=== PATIENT | female | born 1950 | race Caucasian/White ===

== ENCOUNTER 2016-10-05 13:50 | Inpatient (IN) | payer MEDICARE, OTHER ==
[~2016-10-05] VITALS: Ht 154.9 cm; Wt 80.4 kg
[2016-10-05] MEDS ORDERED: NITROGLYCERIN 0.4 MG SL TAB SL PRN (15:00)
[2016-10-05] MEDS ORDERED: MORPHINE SULF INJ 2 MG/ML SYRINGE 1ML IV PRN (15:00)
[2016-10-05] MEDS ORDERED: ONDANSETRON HCL 4 MG/2 ML VIAL IV PRN (15:00)
[2016-10-05] MEDS ORDERED: ALBUTEROL SULF 2.5 MG/0.5ML(0.5%) NEB SOLN NEB PRN (15:00)
[2016-10-05] MEDS: SODIUM CHLORIDE 0.9% 1,000 ML IV SCH (15:00)
[2016-10-05 16:24] LABS: Basophils # (auto) 0 uL; Basophils % (auto) 0.2 % (0.0-2.0); CONDITION AutoValidated; Eosinophils # (auto) 0.1 uL; Hematocrit 35.3 % (36.0-46.0); Hemoglobin 11.9 g/dL (12.2-16.2); Lymphocytes # (auto) 1.4 uL; Lymphocytes % (auto) 12.8 % (10.0-50.0); Mean Corpuscular Hemoglobin 30.2 pg (28.0-32.0); Mean Corpuscular Hgb Conc. 33.8 g/dL (32.0-36.0); Mean Corpuscular Volume 89.3 fL (80.0-100.0); Mean Platelet Volume 7.6 fL (7.4-10.4); Monocytes # (auto) 0.7 uL; Monocytes % (auto) 6.8 % (0.0-12.0); Neutrophils # (auto) 8.6 uL; Neutrophils % (auto) 79.2 % (37.0-80.0); Platelet Count (auto) 710 10^3/uL (140-450); Red Cell Distribution Width 14.1 % (11.6-16.0); White Blood Cell 10.9 10^3/uL (4.4-10.8)
[2016-10-05 16:30] LABS: Albumin 3.1 g/dL (3.4-5.0); BUN/Creatinine Ratio 18.3; Calcium 8.8 mg/dL (8.5-10.1); Potassium 4.2 mmol/L (3.5-5.1)
[2016-10-05 16:33] LABS: Bilirubin, Total 0.3 mg/dL (0.2-1.0); Total Protein 8.4 g/dL (6.4-8.2)
[2016-10-05 17:00] VITALS: BP 128/81
[2016-10-05] MEDS ORDERED: cefTRIAXone 1GM/50ML D5W 50 ML IV ONE (18:00)
[2016-10-05] MEDS: IPRATROPIUM BROM 0.5 MG/2.5ML INH SOL NEB SCH ×2 (18:22→22:14)
[2016-10-05] MEDS: ALBUTEROL SULF 2.5 MG/0.5ML(0.5%) NEB SOLN NEB SCH ×2 (18:23→22:14)
[2016-10-05 20:00] VITALS: BP 131/72
[2016-10-05] MEDS ORDERED: AZITHROMYCIN 500MG/D5W 250ML 250 ML IV ONE (20:00)
[2016-10-05 22:00] VITALS: BP 131/72
[2016-10-05] MEDS ORDERED: XYZAL 5 MG PO SCH (22:00)
[2016-10-05] MEDS: methylPREDNISolone SOD SUCC 40 MG/ML VL IV SCH (22:51)
[2016-10-05] MEDS: ACETAMINOPHEN 325 MG TAB PO PRN (22:55)
[2016-10-06] VITALS (7 sets, daily range): BP systolic 118–138; BP diastolic 38–78
[2016-10-06] MEDS: ALBUTEROL SULF 2.5 MG/0.5ML(0.5%) NEB SOLN NEB SCH ×6 (02:13→22:05)
[2016-10-06] MEDS: IPRATROPIUM BROM 0.5 MG/2.5ML INH SOL NEB SCH ×6 (02:13→22:05)
[2016-10-06 05:52] LABS: Basophils # (auto) 0 uL; Basophils % (auto) 0.2 % (0.0-2.0); CONDITION AutoValidated; Eosinophils # (auto) 0 uL; Eosinophils % (auto) 0.1 % (0.0-7.0); Hematocrit 33.3 % (36.0-46.0); Lymphocytes # (auto) 0.5 uL; Lymphocytes % (auto) 7.2 % (10.0-50.0); Mean Corpuscular Hemoglobin 29.9 pg (28.0-32.0); Mean Corpuscular Hgb Conc. 33.2 g/dL (32.0-36.0); Mean Corpuscular Volume 90.3 fL (80.0-100.0); Mean Platelet Volume 7.4 fL (7.4-10.4); Monocytes # (auto) 0.1 uL; Monocytes % (auto) 1.7 % (0.0-12.0); Neutrophils % (auto) 90.8 % (37.0-80.0); Platelet Count (auto) 603 10^3/uL (140-450); Red Cell Distribution Width 13.7 % (11.6-16.0); White Blood Cell 7.7 10^3/uL (4.4-10.8)
[2016-10-06 06:16] LABS: Albumin 2.7 g/dL (3.4-5.0); BUN/Creatinine Ratio 21.1; Bilirubin, Total 0.2 mg/dL (0.2-1.0); Calcium 8.7 mg/dL (8.5-10.1); Potassium 4.4 mmol/L (3.5-5.1); Total Protein 7.2 g/dL (6.4-8.2)
[2016-10-06] MEDS: methylPREDNISolone SOD SUCC 40 MG/ML VL IV SCH ×4 (06:21→21:49)
[2016-10-06] MEDS: SODIUM CHLORIDE 0.9% 1,000 ML IV SCH ×2 (06:26→19:44)
[2016-10-06] MEDS: cefTRIAXone 1GM/50ML D5W 50 ML IV SCH (10:22)
[2016-10-06] MEDS: METOPROLOL SUCCINATE XL 50 MG TAB PO SCH (10:22)
[2016-10-06] MEDS: PANTOPRAZOLE 40 MG TAB PO SCH (10:23)
[2016-10-06] MEDS: buPROPion HCL 100 MG TAB PO SCH (10:24)
[2016-10-06] MEDS: AZITHROMYCIN 250 MG TAB PO SCH (10:24)
[2016-10-06] MEDS ORDERED: BUPR100T7 (17:59)
[2016-10-06] MEDS ORDERED: LEVOTAB51 (17:59)
[2016-10-06] MEDS ORDERED: ALBU18 (17:59)
[2016-10-06] MEDS ORDERED: METO25TA62 (17:59)
[2016-10-06] MEDS: LORATADINE 10 MG TAB PO SCH (21:49)
[2016-10-07] MEDS: IPRATROPIUM BROM 0.5 MG/2.5ML INH SOL NEB SCH ×6 (01:41→22:05)
[2016-10-07] MEDS: ALBUTEROL SULF 2.5 MG/0.5ML(0.5%) NEB SOLN NEB SCH ×6 (01:41→22:05)
[2016-10-07 04:47] VITALS: BP 108/62
[2016-10-07] MEDS: methylPREDNISolone SOD SUCC 40 MG/ML VL IV SCH ×4 (05:45→21:24)
[2016-10-07] MEDS: SODIUM CHLORIDE 0.9% 1,000 ML IV SCH (05:46)
[2016-10-07] MEDS: ACETAMINOPHEN 325 MG TAB PO PRN (05:55)
[2016-10-07 08:00] VITALS: BP 123/72
[2016-10-07] MEDS: buPROPion HCL 100 MG TAB PO SCH (09:36)
[2016-10-07] MEDS: PANTOPRAZOLE 40 MG TAB PO SCH (09:36)
[2016-10-07] MEDS: AZITHROMYCIN 250 MG TAB PO SCH (09:36)
[2016-10-07] MEDS: cefTRIAXone 1GM/50ML D5W 50 ML IV SCH (09:36)
[2016-10-07] MEDS: METOPROLOL SUCCINATE XL 50 MG TAB PO SCH (09:37)
[2016-10-07] MEDS ORDERED: PROMETHAZINE W/CODEINE 5 ML ORAL SYRUP PO PRN (09:45)
[2016-10-07 15:01] VITALS: BP 146/81
[2016-10-07 17:11] VITALS: BP 131/76
[2016-10-07] MEDS: LORATADINE 10 MG TAB PO SCH (21:25)
[2016-10-07 22:00] VITALS: BP 123/71
[2016-10-08] MEDS: IPRATROPIUM BROM 0.5 MG/2.5ML INH SOL NEB SCH ×3 (02:05→10:08)
[2016-10-08] MEDS: ALBUTEROL SULF 2.5 MG/0.5ML(0.5%) NEB SOLN NEB SCH ×3 (02:06→10:08)
[2016-10-08] MEDS: methylPREDNISolone SOD SUCC 40 MG/ML VL IV SCH (05:15)
[2016-10-08 05:44] LABS: CONDITION AutoValidated; DEFINITIVE SEE PRINTOUT; Hematocrit 36.7 % (36.0-46.0); Hemoglobin 12.1 g/dL (12.2-16.2); Mean Corpuscular Hemoglobin 29.7 pg (28.0-32.0); Mean Corpuscular Hgb Conc. 32.9 g/dL (32.0-36.0); Mean Corpuscular Volume 90.4 fL (80.0-100.0); Mean Platelet Volume 7.4 fL (7.4-10.4); Red Cell Distribution Width 14.4 % (11.6-16.0); White Blood Cell 20.2 10^3/uL (4.4-10.8)
[2016-10-08 05:57] VITALS: BP 144/79
[2016-10-08 06:09] LABS: BUN/Creatinine Ratio 30.3; Bilirubin, Total 0.2 mg/dL (0.2-1.0); Calcium 9.2 mg/dL (8.5-10.1); Potassium 4.4 mmol/L (3.5-5.1); Total Protein 7.6 g/dL (6.4-8.2)
[2016-10-08 06:22] LABS: Metamyelocytes % 0; Myelocytes % 0; Platelet Count (auto) 809 10^3/uL (140-450); Promyelocytes % 0; Reactive Lymphocytes 0
[2016-10-08 06:47] LABS: Platelet Estimate Markedly Increased
[2016-10-08 08:00] VITALS: BP 126/71
[2016-10-08] MEDS: cefTRIAXone 1GM/50ML D5W 50 ML IV SCH (09:00)
[2016-10-08 09:35] VITALS: BP 126/76
[2016-10-08] MEDS: buPROPion HCL 100 MG TAB PO SCH (09:42)
[2016-10-08] MEDS: AZITHROMYCIN 250 MG TAB PO SCH (09:42)
[2016-10-08] MEDS: PANTOPRAZOLE 40 MG TAB PO SCH (09:42)
[2016-10-08] MEDS: METOPROLOL SUCCINATE XL 50 MG TAB PO SCH (09:43)
[2016-10-08 12:15] VITALS: BP 129/77
[2016-10-08 13:01] VITALS: BP 129/77
== END 2016-10-08 14:00 | disposition home or self-care (01) | DRG 202 ==
LOC: TELE-WESTW 13:50
PROVIDERS: ADMIT Internal Medicine; ATTEND Internal Medicine
DX: J45.901 Unspecified asthma with (acute) exacerbation (principal); J18.9 Pneumonia, unspecified organism; E44.0 Moderate protein-calorie malnutrition; F32.9 Major depressive disorder, single episode, unspecified; K21.9 Gastro-esophageal reflux disease without esophagitis; I10 Essential (primary) hypertension; Z68.35 Body mass index [BMI] 35.0-35.9, adult; Z88.0 Allergy status to penicillin; Z88.8 Allergy status to other drugs, medicaments and biological substances
CPT/HCPCS: 36415; 71010; 71020; 80053; 84484; 85007; 85025; 85027; 87040; 94640; J0696

== ENCOUNTER → 2018-09-18 | Outpatient (CLI) | payer MEDICARE, OTHER ==
[~2018-09-18] MED LIST: ALBU18; BUPR100T7; LEVOTAB51; METO25TA62
[2018-09-18 08:09] LABS: Basophils # (auto) 0 uL; Basophils % (auto) 0.6 % (0.0-2.0); Eosinophils # (auto) 0.1 uL; Eosinophils % (auto) 1.2 % (0.0-7.0); Hematocrit 40.7 % (36.0-46.0); Hemoglobin 13.2 g/dL (12.2-16.2); Lymphocytes # (auto) 1.4 uL; Lymphocytes % (auto) 21.4 % (10.0-50.0); Mean Corpuscular Hemoglobin 28.9 pg (28.0-32.0); Mean Corpuscular Hgb Conc. 32.4 g/dL (32.0-36.0); Mean Corpuscular Volume 89.1 fL (80.0-100.0); Monocytes # (auto) 0.5 uL; Monocytes % (auto) 7.8 % (0.0-12.0); Neutrophils # (auto) 4.4 uL; Nucleated Red Blood Cells % 0.1 %; Platelet Count (auto) 399 10^3/uL (140-450); Red Blood Cells 4.57 10^6/uL (4.0-5.20); Red Cell Distribution Width 14.7 % (11.8-14.3); White Blood Cell 6.3 10^3/uL (4.4-10.8)
[2018-09-18 08:19] LABS: Urine Bacteria NONE SEEN /hpf (None Seen); Urine Blood Negative /uL (Negative); Urine Specific Gravity 1.018 (1.001-1.035); Urine WBC 2 /hpf (0 - 5)
[2018-09-18 08:31] LABS: Albumin 3.5 g/dL (3.4-5.0); Potassium 4.5 mmol/L (3.5-5.1)
[2018-09-18 08:36] LABS: BUN/Creatinine Ratio 23.9; Bilirubin, Total 0.3 mg/dL (0.2-1.0); Total Protein 7.3 g/dL (6.4-8.2)
== END | disposition home or self-care (01) ==
LOC: LAB 07:13
PROVIDERS: ATTEND Internal Medicine
DX: E78.5 Hyperlipidemia, unspecified (principal)
CPT/HCPCS: 36415; 80053; 80061; 81001; 82150; 82306; 82607; 83690; 84443; 85025

== ENCOUNTER → 2018-10-17 | Outpatient (CLI) | payer OTHER | END | disposition home or self-care (01) | LOC: LAB 13:06 | PROVIDERS: ATTEND Internal Medicine | DX: Z00.00 Encounter for general adult medical examination without abnormal findings (principal); E78.5 Hyperlipidemia, unspecified; Z83.3 Family history of diabetes mellitus | CPT/HCPCS: 82274 ==

== ENCOUNTER → 2019-01-01 | Outpatient (CLI) | payer OTHER, MEDICARE | END | disposition home or self-care (01) | LOC: LAB 12:32 | PROVIDERS: ATTEND Internal Medicine Gastroenterology | DX: R19.5 Other fecal abnormalities (principal); K58.0 Irritable bowel syndrome with diarrhea | CPT/HCPCS: 82274 ==

== ENCOUNTER 2019-02-17 07:39 | Day surgery (SDC) | payer OTHER ==
[2019-02-13 11:18] LABS: Basophils # (auto) 0 uL; Basophils % (auto) 0.7 % (0.0-2.0); Eosinophils # (auto) 0.1 uL; Eosinophils % (auto) 1.4 % (0.0-7.0); Hematocrit 40.6 % (36.0-46.0); Hemoglobin 13.6 g/dL (12.2-16.2); Lymphocytes # (auto) 1.8 uL; Lymphocytes % (auto) 24.5 % (10.0-50.0); Mean Corpuscular Hemoglobin 29.1 pg (28.0-32.0); Mean Corpuscular Hgb Conc. 33.6 g/dL (32.0-36.0); Mean Corpuscular Volume 86.6 fL (80.0-100.0); Monocytes # (auto) 0.6 uL; Monocytes % (auto) 7.6 % (0.0-12.0); Neutrophils # (auto) 4.9 uL; Neutrophils % (auto) 65.8 % (37.0-80.0); Nucleated Red Blood Cells % 0.1 %; Platelet Count (auto) 423 10^3/uL (140-450); Red Blood Cells 4.68 10^6/uL (4.0-5.20); Red Cell Distribution Width 15.6 % (11.8-14.3); White Blood Cell 7.5 10^3/uL (4.4-10.8)
[2019-02-13 11:35] LABS: INR < 0.93 (0.9-1.15); Partial Thromboplastin Time 27.1 sec (23.64-32.05)
[~2019-02-17] VITALS: Ht 157.5 cm; Wt 74.8 kg
[~2019-02-17 07:39] MED LIST changes: -BUPR100T7; -LEVOTAB51; +OMEP20TA PO
[2019-02-17] MEDS ORDERED: SODIUM CHLORIDE LOCK 10 ML ONE (08:19)
[2019-02-17] MEDS ORDERED: diphenhdrAMINE HCL 50 MG/1 ML VL ONE (08:20)
[2019-02-17] MEDS: MIDAZOLAM HCL 5 MG/ML-1ML VIAL ONE ×3 (09:16→09:24)
[2019-02-17] MEDS: fentaNYL CITRATE 100 MCG/2 ML VL ONE ×2 (09:16→09:19)
[2019-02-17 10:09] VITALS: BP 132/66
== END 2019-02-17 10:22 | disposition home or self-care (01) ==
LOC: GI 07:39
PROVIDERS: ATTEND Internal Medicine Gastroenterology
DX: K58.0 Irritable bowel syndrome with diarrhea (principal); K57.30 Diverticulosis of large intestine without perforation or abscess without bleeding; I10 Essential (primary) hypertension; E66.9 Obesity, unspecified; K21.9 Gastro-esophageal reflux disease without esophagitis; J45.909 Unspecified asthma, uncomplicated; Z90.710 Acquired absence of both cervix and uterus; Z98.890 Other specified postprocedural states; Z88.6 Allergy status to analgesic agent; Z88.0 Allergy status to penicillin; Z79.899 Other long term (current) drug therapy; Z68.29 Body mass index [BMI] 29.0-29.9, adult; Z80.0 Family history of malignant neoplasm of digestive organs
CPT/HCPCS: 36415; 45378; 85025; 85610; 85730; J1200; J2250; J3010; J7030; 99152

== ENCOUNTER → 2020-03-03 | Outpatient (CLI) | payer OTHER, MEDICARE ==
[~2020-03-03] MED LIST changes: -METO25TA62; +METO25TA93
[2020-03-03 07:34] LABS: Basophils # (auto) 0 10 ^3/uL (0-0.2); Basophils % (auto) 0.4 % (0.0-2.0); Eosinophils # (auto) 0.1 10 ^3/uL (0-0.8); Eosinophils % (auto) 1.8 % (0.0-7.0); Lymphocytes # (auto) 1.4 10 ^3/uL (0.4-5.4); Lymphocytes % (auto) 19.4 % (10.0-50.0); Mean Corpuscular Hemoglobin 29.3 pg (28.0-32.0); Mean Corpuscular Hgb Conc. 32.6 g/dL (32.0-36.0); Mean Corpuscular Volume 89.8 fL (80.0-100.0); Monocytes # (auto) 0.7 10 ^3/uL (0-1.3); Neutrophils # (auto) 5.1 10 ^3/uL (1.6-8.6); Neutrophils % (auto) 69.4 % (37.0-80.0); Platelet Count (auto) 399 10^3/uL (140-450); Red Blood Cells 4.46 10^6/uL (4.0-5.20); Red Cell Distribution Width 14.5 % (11.8-14.3); White Blood Cell 7.4 10^3/uL (4.4-10.8)
[2020-03-03 08:09] LABS: Albumin 3.4 g/dL (3.4-5.0); BUN/Creatinine Ratio 23.9; Bilirubin, Total 0.4 mg/dL (0.2-1.0); Calcium 9.3 mg/dL (8.5-10.1); Potassium 4.5 mmol/L (3.5-5.1); Total Protein 7.2 g/dL (6.4-8.2)
== END | disposition home or self-care (01) ==
LOC: LAB 07:11
PROVIDERS: ATTEND Internal Medicine
DX: Z00.00 Encounter for general adult medical examination without abnormal findings (principal)
CPT/HCPCS: 36415; 80053; 80061; 83036; 84443; 85025

== ENCOUNTER → 2020-03-29 | Outpatient (CLI) | payer OTHER | END | disposition home or self-care (01) | LOC: LAB 13:39 | PROVIDERS: ATTEND Nurse Practitioner Family | DX: U07.1 COVID-19 (principal) | CPT/HCPCS: C9803; U0003 ==

== ENCOUNTER → 2020-05-20 | Outpatient (CLI) | payer OTHER | END | disposition home or self-care (01) | LOC: LAB 11:57 | PROVIDERS: ATTEND Physician Assistant | DX: D22.9 Melanocytic nevi, unspecified (principal) ==

== ENCOUNTER → 2020-08-06 | Day surgery (SDC) | payer OTHER ==
[2020-08-03 14:52] LABS: Basophils # (auto) 0 10 ^3/uL (0-0.2); Basophils % (auto) 0.3 % (0.0-2.0); Eosinophils # (auto) 0.1 10 ^3/uL (0-0.8); Eosinophils % (auto) 1.3 % (0.0-7.0); Hematocrit 36.5 % (36.0-46.0); Hemoglobin 12.3 g/dL (12.2-16.2); Lymphocytes # (auto) 1.9 10 ^3/uL (0.4-5.4); Mean Corpuscular Hemoglobin 29.4 pg (28.0-32.0); Mean Corpuscular Hgb Conc. 33.6 g/dL (32.0-36.0); Mean Corpuscular Volume 87.5 fL (80.0-100.0); Monocytes # (auto) 0.7 10 ^3/uL (0-1.3); Monocytes % (auto) 7.2 % (0.0-12.0); Neutrophils # (auto) 6.6 10 ^3/uL (1.6-8.6); Neutrophils % (auto) 71.2 % (37.0-80.0); Nucleated Red Blood Cells % 0.1 %; Platelet Count (auto) 429 10^3/uL (140-450); Red Blood Cells 4.17 10^6/uL (4.0-5.20); White Blood Cell 9.3 10^3/uL (4.4-10.8)
[2020-08-03 15:28] LABS: INR 0.92 (0.9-1.15); Partial Thromboplastin Time 26.5 sec (23.0-31.2)
[~2020-08-06] VITALS: Ht 157.5 cm; Wt 73.5 kg
[~2020-08-06] MED LIST changes: +LIDOCAINE VISCOUS 2% 15ML UD ONE
[2020-08-06] MEDS: fentaNYL CITRATE 100 MCG/2 ML VL ONE ×2 (13:51→13:55)
[2020-08-06] MEDS: diphenhdrAMINE HCL 50 MG/1 ML VL ONE ×2 (13:51→13:55)
[2020-08-06] MEDS: MIDAZOLAM HCL 5 MG/ML-1ML VIAL ONE ×2 (13:51→13:55)
[2020-08-06 14:35] VITALS: BP 121/52
== END | disposition home or self-care (01) ==
LOC: GI 11:57
PROVIDERS: ATTEND Internal Medicine Gastroenterology
DX: K92.1 Melena (principal); K29.50 Unspecified chronic gastritis without bleeding; K31.89 Other diseases of stomach and duodenum; K44.9 Diaphragmatic hernia without obstruction or gangrene; K22.10 Ulcer of esophagus without bleeding; K21.9 Gastro-esophageal reflux disease without esophagitis; I10 Essential (primary) hypertension; J45.909 Unspecified asthma, uncomplicated; Z90.710 Acquired absence of both cervix and uterus; Z20.822 Contact with and (suspected) exposure to COVID-19; Z98.890 Other specified postprocedural states; Z79.899 Other long term (current) drug therapy; Z88.0 Allergy status to penicillin; Z88.5 Allergy status to narcotic agent; Z88.8 Allergy status to other drugs, medicaments and biological substances
CPT/HCPCS: 36415; 85025; 85610; 85730; 88305; 88342; J1200; J2250; J3010; J7030; U0003; 43239

== ENCOUNTER → 2020-10-19 | Outpatient (CLI) | payer OTHER ==
[~2020-10-19] MED LIST changes: -LIDOCAINE VISCOUS 2% 15ML UD ONE
[2020-10-19 15:44] LABS: Urine Bacteria NONE SEEN /hpf (None Seen); Urine Blood Negative /uL (Negative); Urine Mucus FEW (None Seen); Urine Specific Gravity 1.023 (1.001-1.035); Urine WBC 44 /hpf (0 - 5); Urine WBC Clumps PRESENT /hpf (None Seen)
[2020-10-19 16:11] LABS: BUN/Creatinine Ratio 27.2; Calcium 9.1 mg/dL (8.5-10.1); Potassium 4.3 mmol/L (3.5-5.1)
== END | disposition home or self-care (01) ==
LOC: LAB 15:25
PROVIDERS: ATTEND Internal Medicine
DX: K58.2 Mixed irritable bowel syndrome (principal)
CPT/HCPCS: 36415; 80048; 81001; 87086

== ENCOUNTER → 2020-11-02 | Outpatient (CLI) | payer OTHER | END | disposition home or self-care (01) | LOC: LAB 13:25 | PROVIDERS: ATTEND Internal Medicine | DX: Z01.812 Encounter for preprocedural laboratory examination (principal) | CPT/HCPCS: 36415; 82565; 84520 ==

== ENCOUNTER → 2021-04-19 | Day surgery (SDC) | payer OTHER ==
[2021-04-18 10:54] LABS: Basophils # (auto) 0 10 ^3/uL (0-0.2); Basophils % (auto) 0.5 % (0.0-2.0); Eosinophils # (auto) 0.1 10 ^3/uL (0-0.8); Eosinophils % (auto) 1.5 % (0.0-7.0); Hematocrit 40.5 % (36.0-46.0); Hemoglobin 13.3 g/dL (12.2-16.2); Lymphocytes # (auto) 1.4 10 ^3/uL (0.4-5.4); Lymphocytes % (auto) 22.8 % (10.0-50.0); Mean Corpuscular Hemoglobin 29.5 pg (28.0-32.0); Mean Corpuscular Hgb Conc. 32.8 g/dL (32.0-36.0); Monocytes # (auto) 0.5 10 ^3/uL (0-1.3); Monocytes % (auto) 8.2 % (0.0-12.0); Neutrophils # (auto) 4.2 10 ^3/uL (1.6-8.6); Nucleated Red Blood Cells % 0.1 %; Red Blood Cells 4.49 10^6/uL (4.0-5.20); Red Cell Distribution Width 14.9 % (11.8-14.3); White Blood Cell 6.3 10^3/uL (4.4-10.8)
[2021-04-18 11:17] LABS: Potassium 4.4 mmol/L (3.5-5.1)
[2021-04-18 11:24] LABS: Albumin 3.5 g/dL (3.4-5.0); BUN/Creatinine Ratio 25.4; Bilirubin, Total 0.3 mg/dL (0.2-1.0); Calcium 8.6 mg/dL (8.5-10.1); Total Protein 6.8 g/dL (6.4-8.2)
[~2021-04-19] VITALS: Ht 157.5 cm; Wt 72.6 kg
[~2021-04-19] MED LIST changes: +DICY10CA PO; +FAMO20TA10 PO; -OMEP20TA PO; +PANT40TA2 PO; +SERT25TA84 PO; +fentaNYL CITRATE 100 MCG/2 ML VL ONE
[2021-04-19] MEDS: MIDAZOLAM HCL 5 MG/ML-1ML VIAL ONE ×4 (10:37→10:46)
[2021-04-19] MEDS: diphenhdrAMINE HCL 50 MG/1 ML VL ONE ×2 (10:37→10:40)
[2021-04-19] MEDS: fentaNYL CITRATE 100 MCG/2 ML VL ONE ×3 (10:37→10:43)
[2021-04-19 12:00] VITALS: BP 146/64
== END | disposition home or self-care (01) ==
LOC: GI 09:13
PROVIDERS: ATTEND Internal Medicine Gastroenterology
DX: K52.9 Noninfective gastroenteritis and colitis, unspecified (principal); K63.5 Polyp of colon; K57.30 Diverticulosis of large intestine without perforation or abscess without bleeding; I10 Essential (primary) hypertension; M19.90 Unspecified osteoarthritis, unspecified site; F41.9 Anxiety disorder, unspecified; Z90.89 Acquired absence of other organs; Z87.891 Personal history of nicotine dependence; Z82.49 Family history of ischemic heart disease and other diseases of the circulatory system; Z90.710 Acquired absence of both cervix and uterus; Z88.0 Allergy status to penicillin; Z88.5 Allergy status to narcotic agent; Z20.822 Contact with and (suspected) exposure to COVID-19
CPT/HCPCS: 36415; 45385; 80053; 85025; 88305; J1200; J2250; J3010; J7030; U0003; 99152

== ENCOUNTER → 2021-05-30 | Outpatient (CLI) | payer OTHER ==
[~2021-05-30] MED LIST changes: -fentaNYL CITRATE 100 MCG/2 ML VL ONE
== END | disposition home or self-care (01) ==
LOC: XYW 13:49
PROVIDERS: ATTEND Internal Medicine
DX: Z01.810 Encounter for preprocedural cardiovascular examination (principal); I35.1 Nonrheumatic aortic (valve) insufficiency; I05.0 Rheumatic mitral stenosis; I35.0 Nonrheumatic aortic (valve) stenosis
CPT/HCPCS: 93306

== ENCOUNTER → 2021-06-07 | Outpatient (CLI) | payer OTHER ==
[~2021-06-07] VITALS: Ht 157.5 cm; Wt 73.5 kg
[~2021-06-07] MED LIST changes: +ADENOSINE 62 MG in GIVE UN-DILUTED 0 ML IV ONE
[2021-06-07 08:19] VITALS: BP 126/65
== END | disposition home or self-care (01) ==
LOC: XY 07:23
PROVIDERS: ATTEND Internal Medicine
DX: Z01.810 Encounter for preprocedural cardiovascular examination (principal); I10 Essential (primary) hypertension; E66.9 Obesity, unspecified; R42 Dizziness and giddiness
CPT/HCPCS: 78452; 93017; A9500; J0153

== ENCOUNTER → 2021-06-07 | Outpatient (CLI) | payer OTHER ==
[~2021-06-07] MED LIST changes: -ADENOSINE 62 MG in GIVE UN-DILUTED 0 ML IV ONE
[2021-06-07 08:08] LABS: Urine Bacteria FEW /hpf (None Seen); Urine Blood Negative /uL (Negative); Urine Mucus FEW (None Seen); Urine Specific Gravity 1.022 (1.001-1.035); Urine WBC 23 /hpf (0 - 5)
[2021-06-07 13:07] LABS: Cholesterol 230 mg/dL (< 200); HDL Cholesterol 48 mg/dL (40-59); LDL Cholesterol 141 mg/dL (< 100); Triglycerides 251 mg/dL (< 150)
== END | disposition home or self-care (01) ==
LOC: LAB 07:04
PROVIDERS: ATTEND Student in an Organized Health Care Education/Training Program
DX: Z00.00 Encounter for general adult medical examination without abnormal findings (principal)
CPT/HCPCS: 36415; 80061; 81001; 83036

== ENCOUNTER → 2021-06-24 | Outpatient (CLI) | payer OTHER ==
[~2021-06-24] MED LIST changes: +CHOL500033 PO
[2021-06-24 11:05] LABS: Basophils # (auto) 0 10 ^3/uL (0-0.2); Basophils % (auto) 0.5 % (0.0-2.0); Eosinophils # (auto) 0.1 10 ^3/uL (0-0.8); Eosinophils % (auto) 1.6 % (0.0-7.0); Hematocrit 40.4 % (36.0-46.0); Hemoglobin 13.3 g/dL (12.2-16.2); Lymphocytes # (auto) 1.7 10 ^3/uL (0.4-5.4); Mean Corpuscular Hemoglobin 29.8 pg (28.0-32.0); Mean Corpuscular Volume 90.3 fL (80.0-100.0); Monocytes # (auto) 0.6 10 ^3/uL (0-1.3); Monocytes % (auto) 7.3 % (0.0-12.0); Neutrophils # (auto) 5.5 10 ^3/uL (1.6-8.6); Neutrophils % (auto) 69.6 % (37.0-80.0); Nucleated Red Blood Cells % 0.1 %; Red Blood Cells 4.48 10^6/uL (4.0-5.20); Red Cell Distribution Width 14.4 % (11.8-14.3)
[2021-06-24 11:18] LABS: Albumin 3.4 g/dL (3.4-5.0); Calcium 8.9 mg/dL (8.5-10.1); Potassium 4.2 mmol/L (3.5-5.1)
[2021-06-24 11:20] LABS: BUN/Creatinine Ratio 24.7
[2021-06-24 11:21] LABS: INR 0.97 (0.9-1.15); Partial Thromboplastin Time 24.7 sec (23.6-33.0)
[2021-06-24 11:22] LABS: Bilirubin, Total 0.3 mg/dL (0.2-1.0); Total Protein 6.9 g/dL (6.4-8.2)
== END | disposition home or self-care (01) ==
LOC: LAB 10:08
PROVIDERS: ATTEND Internal Medicine
DX: Z01.812 Encounter for preprocedural laboratory examination (principal); I10 Essential (primary) hypertension
CPT/HCPCS: 36415; 80053; 85025; 85610; 85730

== ENCOUNTER 2021-06-29 07:47 | Day surgery (SDC) | payer OTHER ==
[~2021-06-29] VITALS: Ht 157.5 cm; Wt 73.5 kg
[~2021-06-29 07:47] MED LIST changes: -ALBU18; -DICY10CA PO; -FAMO20TA10 PO
[2021-06-29] MEDS ORDERED: MIDAZOLAM HCL 2MG/2ML 2ml VIAL (1mg/ml) ONE ×2 (09:49→10:28)
[2021-06-29] MEDS ORDERED: fentaNYL CITRATE 100 MCG/2 ML VL ONE (09:49)
[2021-06-29] MEDS ORDERED: SODIUM CHL 0.9% 0 ML ONE (09:49)
[2021-06-29] MEDS ORDERED: IODIXANOL 320MG/ML 100ML BTL IV ONE (09:49)
[2021-06-29] MEDS ORDERED: LIDOCAINE 2%HCL (LOCAL ANESTH.) INJ 10ml MDV ONE (09:49)
[2021-06-29] MEDS ORDERED: ANGIOMAX 250 MG VIAL IV ONE (09:49)
[2021-06-29] MEDS ORDERED: VERAPAMIL 2.5MG/ML INJ 2ML VIAL IV ONE (09:49)
[2021-06-29] MEDS ORDERED: HEPARIN SODIUM (PORCINE) 5000 UNITS/ML 1ML VIAL ONE (09:49)
== END 2021-06-29 13:10 | disposition home or self-care (01) ==
LOC: CATH 07:47
PROVIDERS: ATTEND Internal Medicine
DX: R94.39 Abnormal result of other cardiovascular function study (principal); I25.10 Atherosclerotic heart disease of native coronary artery without angina pectoris; I10 Essential (primary) hypertension; F32.A Depression, unspecified; J45.909 Unspecified asthma, uncomplicated; K21.9 Gastro-esophageal reflux disease without esophagitis; E66.9 Obesity, unspecified; Z87.891 Personal history of nicotine dependence; Z82.49 Family history of ischemic heart disease and other diseases of the circulatory system; Z88.5 Allergy status to narcotic agent; Z88.8 Allergy status to other drugs, medicaments and biological substances; Z20.822 Contact with and (suspected) exposure to COVID-19; Z68.29 Body mass index [BMI] 29.0-29.9, adult
CPT/HCPCS: 36415; 87426; 93458; C1887; C1894; J1644; J2001; J2250; J3010; J7030; Q9967; 99152; 99153

== ENCOUNTER 2021-08-22 07:44 | Inpatient (IN) | payer OTHER ==
[2021-08-18 10:57] LABS: Basophils # (auto) 0 10 ^3/uL (0-0.2); Basophils % (auto) 0.3 % (0.0-2.0); Eosinophils # (auto) 0.1 10 ^3/uL (0-0.8); Eosinophils % (auto) 1.5 % (0.0-7.0); Hematocrit 36.9 % (36.0-46.0); Hemoglobin 12.4 g/dL (12.2-16.2); Lymphocytes # (auto) 1.6 10 ^3/uL (0.4-5.4); Lymphocytes % (auto) 22.6 % (10.0-50.0); Mean Corpuscular Hemoglobin 30.4 pg (28.0-32.0); Mean Corpuscular Hgb Conc. 33.5 g/dL (32.0-36.0); Mean Corpuscular Volume 90.6 fL (80.0-100.0); Monocytes # (auto) 0.6 10 ^3/uL (0-1.3); Neutrophils # (auto) 4.7 10 ^3/uL (1.6-8.6); Neutrophils % (auto) 66.6 % (37.0-80.0); Red Blood Cells 4.07 10^6/uL (4.0-5.20); Red Cell Distribution Width 15.3 % (11.8-14.3)
[2021-08-18 11:13] LABS: INR 0.98 (0.9-1.15); Partial Thromboplastin Time 25.3 sec (23.6-33.0)
[2021-08-18 11:14] LABS: Urine Bacteria NONE SEEN /hpf (None Seen); Urine Blood Negative /uL (Negative); Urine Specific Gravity 1.023 (1.001-1.035); Urine WBC 1 /hpf (0 - 5)
[2021-08-18 11:41] LABS: Albumin 3.2 g/dL (3.4-5.0); BUN/Creatinine Ratio 28.8; Bilirubin, Total 0.4 mg/dL (0.2-1.0); Calcium 8.6 mg/dL (8.5-10.1); Total Protein 6.8 g/dL (6.4-8.2)
[2021-08-22] VITALS (9 sets, daily range): BP systolic 96–123; BP diastolic 53–64
[~2021-08-22] VITALS: Ht 157.5 cm; Wt 82.2 kg
[~2021-08-22 07:44] MED LIST changes: +DIPH2.5T73 PO; +FAMO20TA10 PO; +MULT-1018 OR; +PRE5T PO; +ROSU40TA PO; -SERT25TA84 PO; +SERT50TA PO; +SULF500T8 PO
[2021-08-22] MEDS ORDERED: CELECOXIB 100 MG CAP ONE (08:25)
[2021-08-22] MEDS ORDERED: ACETAMINOPHEN IV 100 ML IV ONE (08:26)
[2021-08-22] MEDS ORDERED: PREGABALIN CAPSULE 75 MG CAP ONE (08:26)
[2021-08-22] MEDS ORDERED: BUPIVACAINE 0.25% INJ 50ML VIAL ONE (08:32)
[2021-08-22] MEDS ORDERED: TRANEXAMIC ACID 20 ML ONE (08:32)
[2021-08-22] MEDS ORDERED: VANCOMYCIN HCL 1000 MG VL ONE (08:33)
[2021-08-22] MEDS ORDERED: fentaNYL CITRATE 100 MCG/2 ML VL ONE (08:48)
[2021-08-22] MEDS ORDERED: ceFAZolin 1GM/50ML 100 ML IV ONE (08:48)
[2021-08-22] MEDS ORDERED: PROPOFOL 10 MG/ML 20 ML IV ONE (08:48)
[2021-08-22] MEDS ORDERED: MIDAZOLAM HCL 2MG/2ML 2ml VIAL (1mg/ml) ONE (08:48)
[2021-08-22] MEDS ORDERED: MORPHINE SULF PF 5 MG/10 ML VIAL ONE (08:48)
[2021-08-22] MEDS ORDERED: ePHEDrine SULFATE 50 MG/ML AMP ONE (08:48)
[2021-08-22] MEDS ORDERED: GLYCOPYRROLATE 0.2 MG/ML 1ML VIAL ONE (08:48)
[2021-08-22] MEDS ORDERED: ONDANSETRON HCL 4 MG/2 ML VIAL ONE (08:48)
[2021-08-22] MEDS ORDERED: ACETAMINOPHEN IV 1000 MG/100ML (10MG/ML) IV ONE (09:15)
[2021-08-22] MEDS ORDERED: CELECOXIB 100 MG CAP PO ONE (09:15)
[2021-08-22] MEDS ORDERED: KETOROLAC TROMETH 30 MG/ML 1ML VIAL ONE (09:31)
[2021-08-22] MEDS ORDERED: PREGABALIN CAPSULE 75 MG CAP PO ONE (09:45)
[2021-08-22] MEDS ORDERED: ONDANSETRON HCL 4 MG/2 ML VIAL IV PRN ×3 (11:15→16:00)
[2021-08-22] MEDS ORDERED: ACETAMINOPHEN 325 MG TAB PO PRN (11:15)
[2021-08-22] MEDS ORDERED: HYDROcodone-ACET 5/325MG TAB PO PRN (11:15)
[2021-08-22] MEDS ORDERED: BISACODYL 5 MG EC TAB PO PRN (11:15)
[2021-08-22] MEDS ORDERED: MORPHINE SULFATE INJECTION 2 MG/ML SYRG IV PRN (11:15)
[2021-08-22] MEDS ORDERED: NITROGLYCERIN 0.4 MG SL TAB SL PRN (11:15)
[2021-08-22] MEDS ORDERED: HYDROmorphone HCL 2 MG/ML VL/or syr IV PRN (11:15)
[2021-08-22] MEDS ORDERED: HYDROcodone-ACET 10/325MG TAB PO PRN (11:15)
[2021-08-22] MEDS ORDERED: DexAMETHasone SOD PHOS 10MG/1ML VIAL INJ IV PRN (11:45)
[2021-08-22] MEDS ORDERED: NALOXONE HCL 0.4 MG/ML VIAL IV PRN (11:45)
[2021-08-22] MEDS ORDERED: diphenhdrAMINE HCL 50 MG/1 ML VL IV PRN (11:45)
[2021-08-22] MEDS: SODIUM CHLOR 0.9% PF (SALINE LOCK) 10ML VIAL/SYR IV SCH ×2 (14:00→22:17)
[2021-08-22] MEDS: ceFAZolin 1GM/50ML 50 ML IV SCH ×3 (17:15→23:51)
[2021-08-22] MEDS: LACTATED RINGER'S 1,000 ML IV SCH ×2 (17:18→21:46)
[2021-08-22] MEDS: DIPHENOXYLATE W/ATROPINE 2.5 MG TAB PO SCH (22:15)
[2021-08-22] MEDS: sulfaSALAzine 500 MG TAB PO SCH (22:15)
[2021-08-22] MEDS: DOCUSATE SOD 100 MG CAP PO SCH (22:16)
[2021-08-23] VITALS (15 sets, daily range): BP systolic 103–138; BP diastolic 53–99
[2021-08-23] MEDS: SODIUM CHLOR 0.9% PF (SALINE LOCK) 10ML VIAL/SYR IV SCH ×3 (05:20→22:40)
[2021-08-23] MEDS: LACTATED RINGER'S 1,000 ML IV SCH (05:21)
[2021-08-23 05:34] LABS: Hematocrit 28.6 % (36.0-46.0); Hemoglobin 9.5 g/dL (12.2-16.2)
[2021-08-23 05:45] LABS: BUN/Creatinine Ratio 37.3; Potassium 4.2 mmol/L (3.5-5.1)
[2021-08-23] MEDS: DOCUSATE SOD 100 MG CAP PO SCH ×2 (09:48→22:46)
[2021-08-23] MEDS: ENOXAPARIN SOD 40 MG/0.4 ML SYRINGE SC SCH (09:48)
[2021-08-23] MEDS: SERTRALINE HCL 50 MG TAB PO SCH (09:48)
[2021-08-23] MEDS: PANTOPRAZOLE 40 MG TAB PO SCH (09:48)
[2021-08-23] MEDS: sulfaSALAzine 500 MG TAB PO SCH ×2 (09:49→22:41)
[2021-08-23] MEDS: DIPHENOXYLATE W/ATROPINE 2.5 MG TAB PO SCH ×2 (09:49→22:41)
[2021-08-23] MEDS: MULTIPLE VITAMIN TAB PO SCH (09:49)
[2021-08-23] MEDS: CHOLECALCIFEROL (VITD3) 1,000UNIT=25mCg TAB PO SCH (09:50)
[2021-08-23] MEDS: FAMOTIDINE 20 MG TAB PO SCH (09:51)
[2021-08-23] MEDS ORDERED: METOPROLOL SUCCINATE XL 50 MG TAB PO SCH (10:00)
[2021-08-23] MEDS ORDERED: HYDROCORTISONE SOD SUCC 100 MG/2ML INJ VIAL IV ONE (10:16)
[2021-08-23] MEDS ORDERED: predniSONE 5 MG TAB PO ONE (12:15)
[2021-08-23] MEDS: HYDROmorphone HCL 2 MG/ML VL/or syr IV PRN ×2 (13:54→20:19)
[2021-08-24] MEDS: HYDROcodone-ACET 10/325MG TAB PO PRN ×4 (02:40→20:32)
[2021-08-24] MEDS: SODIUM CHLOR 0.9% PF (SALINE LOCK) 10ML VIAL/SYR IV SCH ×3 (04:55→22:00)
[2021-08-24 05:10] VITALS: BP 121/56
[2021-08-24 06:35] LABS: Hematocrit 27.7 % (36.0-46.0); Hemoglobin 9.9 g/dL (12.2-16.2)
[2021-08-24 08:00] VITALS: BP 114/55
[2021-08-24] MEDS: predniSONE 5 MG TAB PO SCH (08:36)
[2021-08-24] MEDS: MULTIPLE VITAMIN TAB PO SCH (08:37)
[2021-08-24] MEDS: FAMOTIDINE 20 MG TAB PO SCH (08:37)
[2021-08-24] MEDS: DIPHENOXYLATE W/ATROPINE 2.5 MG TAB PO SCH ×2 (08:37→22:07)
[2021-08-24] MEDS: PANTOPRAZOLE 40 MG TAB PO SCH (08:37)
[2021-08-24] MEDS: sulfaSALAzine 500 MG TAB PO SCH ×2 (08:37→22:07)
[2021-08-24] MEDS: ENOXAPARIN SOD 40 MG/0.4 ML SYRINGE SC SCH (08:38)
[2021-08-24] MEDS: SERTRALINE HCL 50 MG TAB PO SCH (08:38)
[2021-08-24] MEDS: HYDROmorphone HCL 2 MG/ML VL/or syr IV PRN ×2 (08:39→09:25)
[2021-08-24 09:00] VITALS: BP 114/55
[2021-08-24] MEDS: CHOLECALCIFEROL (VITD3) 1,000UNIT=25mCg TAB PO SCH (12:39)
[2021-08-24] MEDS: DOCUSATE SOD 100 MG CAP PO SCH ×2 (12:39→22:07)
[2021-08-24 13:00] VITALS: BP 126/59
[2021-08-24 17:22] VITALS: BP 116/61
[2021-08-24 21:53] VITALS: BP 133/49
[2021-08-25 05:00] VITALS: BP 136/62
[2021-08-25] MEDS: SODIUM CHLOR 0.9% PF (SALINE LOCK) 10ML VIAL/SYR IV SCH ×3 (05:12→22:18)
[2021-08-25] MEDS: HYDROcodone-ACET 10/325MG TAB PO PRN ×3 (05:19→16:57)
[2021-08-25 06:55] LABS: Hematocrit 27.6 % (36.0-46.0); Hemoglobin 9.2 g/dL (12.2-16.2)
[2021-08-25 08:00] VITALS: BP 132/48
[2021-08-25] MEDS: predniSONE 5 MG TAB PO SCH (08:49)
[2021-08-25] MEDS: MULTIPLE VITAMIN TAB PO SCH (08:49)
[2021-08-25] MEDS: DOCUSATE SOD 100 MG CAP PO SCH ×2 (08:49→22:19)
[2021-08-25] MEDS: sulfaSALAzine 500 MG TAB PO SCH ×2 (08:49→22:18)
[2021-08-25] MEDS: FAMOTIDINE 20 MG TAB PO SCH (08:50)
[2021-08-25] MEDS: SERTRALINE HCL 50 MG TAB PO SCH (08:50)
[2021-08-25] MEDS: DIPHENOXYLATE W/ATROPINE 2.5 MG TAB PO SCH ×2 (08:50→22:19)
[2021-08-25] MEDS: ENOXAPARIN SOD 40 MG/0.4 ML SYRINGE SC SCH (08:50)
[2021-08-25] MEDS: CHOLECALCIFEROL (VITD3) 1,000UNIT=25mCg TAB PO SCH (08:52)
[2021-08-25 09:22] VITALS: BP 132/48
[2021-08-25 13:00] VITALS: BP 115/53
[2021-08-25 16:37] VITALS: BP 130/51
[2021-08-25 22:00] VITALS: BP 129/52
[2021-08-25] MEDS: HYDROmorphone HCL 2 MG/ML VL/or syr IV PRN (22:20)
[2021-08-26 05:00] VITALS: BP 131/55
[2021-08-26] MEDS: SODIUM CHLOR 0.9% PF (SALINE LOCK) 10ML VIAL/SYR IV SCH ×2 (08:12→14:00)
[2021-08-26 09:00] VITALS: BP 134/67
[2021-08-26] MEDS: FAMOTIDINE 20 MG TAB PO SCH (09:00)
[2021-08-26] MEDS: SERTRALINE HCL 50 MG TAB PO SCH (09:01)
[2021-08-26] MEDS: DOCUSATE SOD 100 MG CAP PO SCH (09:01)
[2021-08-26] MEDS: predniSONE 5 MG TAB PO SCH (09:01)
[2021-08-26] MEDS: MULTIPLE VITAMIN TAB PO SCH (09:01)
[2021-08-26] MEDS: CHOLECALCIFEROL (VITD3) 1,000UNIT=25mCg TAB PO SCH (09:02)
[2021-08-26] MEDS: sulfaSALAzine 500 MG TAB PO SCH (09:02)
[2021-08-26] MEDS: DIPHENOXYLATE W/ATROPINE 2.5 MG TAB PO SCH (09:02)
[2021-08-26] MEDS: ENOXAPARIN SOD 40 MG/0.4 ML SYRINGE SC SCH (09:02)
[2021-08-26] MEDS: HYDROcodone-ACET 10/325MG TAB PO PRN (09:03)
[2021-08-26] MEDS: HYDROmorphone HCL 2 MG/ML VL/or syr IV PRN (10:29)
[2021-08-26] MEDS ORDERED: DOXY-332 PO (10:57)
[2021-08-26] MEDS ORDERED: DOXYCYCLINE 100 MG TAB/CAP PO ONE (11:00)
[2021-08-26 13:00] VITALS: BP 134/59
== END 2021-08-26 14:30 | disposition home or self-care (01) | DRG 469 ==
LOC: SUR 07:44 → TELE 11:03 → TELE-EAST 15:30
PROVIDERS: ADMIT Orthopaedic Surgery Adult Reconstructive Orthopaedic Surgery; ATTEND Internal Medicine
PROC: 8E0YXBG Computer Assisted Procedure of Lower Extremity, With Computerized Tomography (ICD-10-PCS; 2021-08-22)
PROC: 0SR906Z Replacement of Right Hip Joint with Oxidized Zirconium on Polyethylene Synthetic Substitute, Open Approach (ICD-10-PCS; principal; 2021-08-22 09:40)
DX: M16.11 Unilateral primary osteoarthritis, right hip (principal); J96.00 Acute respiratory failure, unspecified whether with hypoxia or hypercapnia; K50.90 Crohn's disease, unspecified, without complications; I10 Essential (primary) hypertension; E66.9 Obesity, unspecified; E78.5 Hyperlipidemia, unspecified; F32.A Depression, unspecified; Z96.641 Presence of right artificial hip joint; Z20.822 Contact with and (suspected) exposure to COVID-19; Z68.33 Body mass index [BMI] 33.0-33.9, adult; Z88.5 Allergy status to narcotic agent; Z88.0 Allergy status to penicillin; Z88.8 Allergy status to other drugs, medicaments and biological substances
CPT/HCPCS: 36415; 36600; 72170; 73501; 80048; 80053; 81001; 82805; 85014; 85018; 85025; 85610; 85730; 86850; 86900; 86901; 97110; 97116; 97163; 97530; C1713; G0378; J0131; J0690; J1885; J2250; J2405; J2704; J3490

== ENCOUNTER → 2022-06-27 | Outpatient (CLI) | payer OTHER ==
[~2022-06-27] MED LIST changes: +DOXY-332 PO
== END | disposition home or self-care (01) ==
LOC: XYW 07:25
PROVIDERS: ATTEND Internal Medicine
DX: I08.3 Combined rheumatic disorders of mitral, aortic and tricuspid valves (principal); R07.89 Other chest pain
CPT/HCPCS: 93306

== ENCOUNTER → 2022-06-27 | Outpatient (CLI) | payer OTHER ==
[2022-06-27 07:22] LABS: Basophils # (auto) 0 10 ^3/uL (0-0.2); Basophils % (auto) 0.3 % (0.0-2.0); Eosinophils # (auto) 0.1 10 ^3/uL (0-0.8); Eosinophils % (auto) 1.1 % (0.0-7.0); Hematocrit 40.2 % (36.0-46.0); Hemoglobin 13.2 g/dL (12.2-16.2); Lymphocytes # (auto) 1.9 10 ^3/uL (0.4-5.4); Lymphocytes % (auto) 20.4 % (10.0-50.0); Mean Corpuscular Hemoglobin 28.8 pg (28.0-32.0); Mean Corpuscular Volume 87.5 fL (80.0-100.0); Monocytes # (auto) 0.9 10 ^3/uL (0-1.3); Monocytes % (auto) 9.5 % (0.0-12.0); Neutrophils # (auto) 6.5 10 ^3/uL (1.6-8.6); Neutrophils % (auto) 68.7 % (37.0-80.0); Nucleated Red Blood Cells % 0.1 %; Red Blood Cells 4.59 10^6/uL (4.0-5.20); Red Cell Distribution Width 16.5 % (11.8-14.3); White Blood Cell 9.4 10^3/uL (4.4-10.8)
[2022-06-27 08:20] LABS: Albumin 3.4 g/dL (3.4-5.0); BUN/Creatinine Ratio 23.3; Bilirubin, Total 0.3 mg/dL (0.2-1.0); Calcium 8.5 mg/dL (8.5-10.1); Potassium 4.1 mmol/L (3.5-5.1); Total Protein 6.8 g/dL (6.4-8.2)
== END | disposition home or self-care (01) ==
LOC: LAB 07:10
PROVIDERS: ATTEND Internal Medicine
DX: I10 Essential (primary) hypertension (principal)
CPT/HCPCS: 36415; 80053; 80061; 83880; 84443; 85025

== ENCOUNTER → 2022-08-22 | Outpatient (CLI) | payer OTHER ==
[~2022-08-22] VITALS: Ht 154.9 cm; Wt 78.9 kg
[~2022-08-22] MED LIST changes: +ADENOSINE 66 MG in GIVE UN-DILUTED 0 ML IV STA
[2022-08-22 08:19] VITALS: BP 120/81
== END | disposition home or self-care (01) ==
LOC: XYW 07:11
PROVIDERS: ATTEND Internal Medicine
DX: Z00.00 Encounter for general adult medical examination without abnormal findings (principal); R06.02 Shortness of breath; M25.511 Pain in right shoulder; R07.9 Chest pain, unspecified; I70.0 Atherosclerosis of aorta; G89.29 Other chronic pain; E27.8 Other specified disorders of adrenal gland; B97.7 Papillomavirus as the cause of diseases classified elsewhere; F32.0 Major depressive disorder, single episode, mild; E66.09 Other obesity due to excess calories; Z68.32 Body mass index [BMI] 32.0-32.9, adult
CPT/HCPCS: 78452; 93017; A9500; J0153

== ENCOUNTER → 2023-02-12 | Outpatient (CLI) | payer OTHER ==
[~2023-02-12] MED LIST changes: -ADENOSINE 66 MG in GIVE UN-DILUTED 0 ML IV STA; -DOXY-332 PO; +DOXY-448 PO; -ROSU40TA PO; +ROSU40TA81 PO; +SULF500T57 PO; -SULF500T8 PO
[2023-02-12 09:29] LABS: Albumin 4.5 g/dL (3.2-4.8); Alkaline Phosphatase 71 U/L (46-116); Anion Gap 7 (5-15); BUN/Creatinine Ratio 15.7 (10.0-20.0); Blood Urea Nitrogen 11 mg/dL (9-23); Calcium 9.4 mg/dL (8.5-10.1); Carbon Dioxide 28 mmol/L (20-30); Chloride 106 mmol/L (98-107); Glucose 95 mg/dL (74-106); Potassium 4.1 mmol/L (3.5-5.1); Sodium 141 mmol/L (136-145)
[2023-02-12 09:30] LABS: Aspartate Aminotransferase 15 U/L (13-40); Bilirubin, Total 0.4 mg/dL (0.2-1.0); Total Protein 7.2 g/dL (5.7-8.2)
[2023-02-12 09:32] LABS: Alanine Aminotransferase < 9 U/L (7-40)
== END | disposition home or self-care (01) ==
LOC: LAB 08:36
PROVIDERS: ATTEND Internal Medicine
DX: Z01.812 Encounter for preprocedural laboratory examination (principal)
CPT/HCPCS: 36415; 80053

== ENCOUNTER → 2023-05-09 | Outpatient (CLI) | payer OTHER ==
[~2023-05-09] MED LIST changes: +BUPIVACAINE HCL 0.25% P/F 10 ML VIAL ONE; +IOHEXOL 300 MG/ML 100ML BOTTLE IJ ONE; +LIDOCAINE 2% (LOCAL ANESTH.) PF 5ml SDV ONE; +LIDOCAINE 2%HCL (LOCAL ANESTH.) INJ 10ml MDV ONE; +methylPREDNISolone ACETATE 80 MG/ML VL ONE
== END | disposition home or self-care (01) ==
LOC: XYW 10:34
PROVIDERS: ATTEND Orthopaedic Surgery Sports Medicine
DX: M25.511 Pain in right shoulder (principal); I10 Essential (primary) hypertension; K21.9 Gastro-esophageal reflux disease without esophagitis; J44.9 Chronic obstructive pulmonary disease, unspecified; Z88.0 Allergy status to penicillin; Z88.5 Allergy status to narcotic agent; Z88.8 Allergy status to other drugs, medicaments and biological substances; Z98.49 Cataract extraction status, unspecified eye; Z79.899 Other long term (current) drug therapy; Z82.49 Family history of ischemic heart disease and other diseases of the circulatory system; Z87.891 Personal history of nicotine dependence; Z90.49 Acquired absence of other specified parts of digestive tract; Z90.710 Acquired absence of both cervix and uterus; Z98.890 Other specified postprocedural states
CPT/HCPCS: 20610; 73020; 77002; J1040; J2001; J3490; Q9967

== ENCOUNTER → 2023-06-20 | Day surgery (SDC) | payer OTHER ==
[2023-06-15 10:56] LABS: Basophils # (auto) 0 10 ^3/uL (0-0.2); Basophils % (auto) 0.3 % (0.0-2.0); Eosinophils # (auto) 0.1 10 ^3/uL (0-0.8); Eosinophils % (auto) 1.7 % (0.0-7.0); Hematocrit 39.1 % (36.0-46.0); Hemoglobin 12.8 g/dL (12.2-16.2); Lymphocytes # (auto) 1.6 10 ^3/uL (0.4-5.4); Lymphocytes % (auto) 19.5 % (10.0-50.0); Mean Corpuscular Hemoglobin 28.3 pg (28.0-32.0); Mean Corpuscular Hgb Conc. 32.9 g/dL (32.0-36.0); Monocytes # (auto) 0.6 10 ^3/uL (0-1.3); Monocytes % (auto) 7.7 % (0.0-12.0); Neutrophils # (auto) 5.9 10 ^3/uL (1.6-8.6); Neutrophils % (auto) 70.8 % (37.0-80.0); Nucleated Red Blood Cells % 0.1 %; Red Blood Cells 4.54 10^6/uL (4.0-5.20); Red Cell Distribution Width 16.2 % (11.8-14.3); White Blood Cell 8.3 10^3/uL (4.4-10.8)
[2023-06-15 11:11] LABS: INR 0.98 (0.9-1.15); Partial Thromboplastin Time 27.1 SEC (24.5-34.5); Prothrombin Time 10.3 sec (9.3-11.8)
[2023-06-15 11:34] LABS: Alanine Aminotransferase 22 U/L (7-40); Albumin 4.4 g/dL (3.2-4.8); Alkaline Phosphatase 65 U/L (46-116); Anion Gap 7 (5-15); Aspartate Aminotransferase 25 U/L (13-40); BUN/Creatinine Ratio 17.1 (10.0-20.0); Blood Urea Nitrogen 13 mg/dL (9-23); Calcium 9.4 mg/dL (8.5-10.1); Carbon Dioxide 29 mmol/L (20-30); Chloride 105 mmol/L (98-107); Glucose 101 mg/dL (74-106); Potassium 4.1 mmol/L (3.5-5.1); Sodium 141 mmol/L (136-145)
[2023-06-15 11:35] LABS: Bilirubin, Total 0.5 mg/dL (0.2-1.0)
[~2023-06-20] VITALS: Ht 157.5 cm; Wt 72.6 kg
[~2023-06-20] MED LIST changes: -BUPIVACAINE HCL 0.25% P/F 10 ML VIAL ONE; -DOXY-448 PO; -IOHEXOL 300 MG/ML 100ML BOTTLE IJ ONE; -LIDOCAINE 2% (LOCAL ANESTH.) PF 5ml SDV ONE; -LIDOCAINE 2%HCL (LOCAL ANESTH.) INJ 10ml MDV ONE; +MIDAZOLAM HCL 2MG/2ML 2ml VIAL (1mg/ml) ONE; -PRE5T PO; +SODIUM CHLORIDE LOCK 10 ML ONE; -methylPREDNISolone ACETATE 80 MG/ML VL ONE
[2023-06-20] MEDS: diphenhdrAMINE HCL 50 MG/1 ML VL ONE (11:20)
[2023-06-20] MEDS: fentaNYL CITRATE 100 MCG/2 ML VL ONE (11:20)
[2023-06-20] MEDS: MIDAZOLAM HCL 5 MG/ML-1ML VIAL ONE (11:20)
[2023-06-20 11:49] VITALS: O2SAT 100
[2023-06-20 11:50] VITALS: TEMP 98.1
[2023-06-20 12:30] VITALS: BP 121/53; PULSE 68; RESP 16; O2SAT 92
== END | disposition home or self-care (01) ==
LOC: GI 09:23
PROVIDERS: ATTEND Internal Medicine Gastroenterology
DX: Z12.11 Encounter for screening for malignant neoplasm of colon (principal); D12.2 Benign neoplasm of ascending colon; K57.30 Diverticulosis of large intestine without perforation or abscess without bleeding; K63.89 Other specified diseases of intestine; K64.8 Other hemorrhoids; K21.9 Gastro-esophageal reflux disease without esophagitis; K50.90 Crohn's disease, unspecified, without complications; K57.92 Diverticulitis of intestine, part unspecified, without perforation or abscess without bleeding; I10 Essential (primary) hypertension; E78.5 Hyperlipidemia, unspecified; J44.9 Chronic obstructive pulmonary disease, unspecified; Z88.0 Allergy status to penicillin; Z88.8 Allergy status to other drugs, medicaments and biological substances; Z88.5 Allergy status to narcotic agent; Z82.49 Family history of ischemic heart disease and other diseases of the circulatory system; Z87.891 Personal history of nicotine dependence; Z79.899 Other long term (current) drug therapy; Z90.710 Acquired absence of both cervix and uterus; Z98.890 Other specified postprocedural states
CPT/HCPCS: 36415; 45380; 45385; 80053; 85025; 85610; 85730; J1200; J2250; J3010; J7030; 99152; 99153

== ENCOUNTER → 2023-09-07 | Outpatient (CLI) | payer OTHER ==
[~2023-09-07] MED LIST changes: -MIDAZOLAM HCL 2MG/2ML 2ml VIAL (1mg/ml) ONE; -SODIUM CHLORIDE LOCK 10 ML ONE
== END | disposition home or self-care (01) ==
LOC: LAB 10:00
PROVIDERS: ATTEND Family Medicine
DX: L82.1 Other seborrheic keratosis (principal); D48.5 Neoplasm of uncertain behavior of skin

== ENCOUNTER → 2023-11-21 | Outpatient (CLI) | payer OTHER ==
[2023-11-21 12:46] LABS: Basophils # (auto) 0 10 ^3/uL (0-0.2); Basophils % (auto) 0.2 % (0.0-2.0); Eosinophils # (auto) 0.1 10 ^3/uL (0-0.8); Eosinophils % (auto) 1.6 % (0.0-7.0); Hematocrit 38.4 % (36.0-46.0); Hemoglobin 12.8 g/dL (12.2-16.2); Lymphocytes # (auto) 1.6 10 ^3/uL (0.4-5.4); Lymphocytes % (auto) 24.8 % (10.0-50.0); Mean Corpuscular Hemoglobin 29.2 pg (28.0-32.0); Mean Corpuscular Hgb Conc. 33.4 g/dL (32.0-36.0); Mean Corpuscular Volume 87.6 fL (80.0-100.0); Monocytes # (auto) 0.6 10 ^3/uL (0-1.3); Monocytes % (auto) 9.6 % (0.0-12.0); Neutrophils # (auto) 4.1 10 ^3/uL (1.6-8.6); Neutrophils % (auto) 63.8 % (37.0-80.0); Red Blood Cells 4.39 10^6/uL (4.0-5.20); Red Cell Distribution Width 15.5 % (11.8-14.3); White Blood Cell 6.4 10^3/uL (4.4-10.8)
[2023-11-21 14:00] LABS: Alanine Aminotransferase 20 U/L (7-40); Alkaline Phosphatase 66 U/L (46-116); Anion Gap 3 (5-15); BUN/Creatinine Ratio 20.6 (10.0-20.0); Blood Urea Nitrogen 14 mg/dL (9-23); Calcium 9.3 mg/dL (8.7-10.4); Carbon Dioxide 28 mmol/L (20-30); Chloride 107 mmol/L (98-107); Glucose 87 mg/dL (74-106); Potassium 3.9 mmol/L (3.5-5.1); Sodium 138 mmol/L (136-145)
[2023-11-21 14:01] LABS: Albumin 4.2 g/dL (3.2-4.8); Aspartate Aminotransferase 14 U/L (13-40); Bilirubin, Total 0.3 mg/dL (0.2-1.0)
[2023-11-21 14:02] LABS: Total Protein 6.5 g/dL (5.7-8.2)
[2023-11-22 14:45] LABS: Free T4 (Free Thyroxine) 1.11 ng/dL (0.89-1.76)
== END | disposition home or self-care (01) ==
LOC: LAB 12:31
PROVIDERS: ATTEND Internal Medicine
DX: I70.0 Atherosclerosis of aorta (principal); R06.02 Shortness of breath
CPT/HCPCS: 36415; 80053; 82306; 82607; 83036; 84439; 84443; 85025

== ENCOUNTER → 2024-08-22 | Outpatient (CLI) | payer OTHER | END | disposition home or self-care (01) | LOC: LAB 11:41 | PROVIDERS: ATTEND Family Medicine | DX: Z01.812 Encounter for preprocedural laboratory examination (principal); D48.5 Neoplasm of uncertain behavior of skin ==

== ENCOUNTER 2024-10-28 08:00 | Outpatient (CLI) | payer OTHER ==
[2024-10-28 08:58] LABS: Urine Protein, UAD Negative (Negative)
[2024-10-28 09:00] LABS: Hematocrit 39.1 % (36.0-46.0); Hemoglobin 12.9 g/dL (12.2-16.2); Mean Corpuscular Hemoglobin 29.1 pg (28.0-32.0); Mean Corpuscular Volume 88.2 fL (80.0-100.0); Nucleated Red Blood Cells % 0.1 %
[2024-10-28 09:16] LABS: Alanine Aminotransferase 14 U/L (7-40); Albumin 4.3 g/dL (3.2-4.8); Alkaline Phosphatase 67 U/L (46-116); Anion Gap 9 (5-15); BUN/Creatinine Ratio 15.9 (10.0-20.0); Blood Urea Nitrogen 13 mg/dL (9-23); Calcium 10.0 mg/dL (8.7-10.4); Carbon Dioxide 28 mmol/L (20-31); Chloride 105 mmol/L (98-107); Glucose 89 mg/dL (74-106); Potassium 4.1 mmol/L (3.5-5.1); Sodium 142 mmol/L (136-145); Total Protein 6.4 g/dL (5.7-8.2)
[2024-10-28 09:17] LABS: Bilirubin, Total 0.4 mg/dL (0.2-1.0); Cholesterol 217 mg/dL (< 200); HDL Cholesterol 47 mg/dL (40-59); Triglycerides 197 mg/dL (< 150)
== END 2024-10-28 19:22 | disposition home or self-care (01) ==
LOC: LAB 08:00
PROVIDERS: ATTEND Internal Medicine
DX: I10 Essential (primary) hypertension (principal); E55.9 Vitamin D deficiency, unspecified; Z13.1 Encounter for screening for diabetes mellitus; Z00.01 Encounter for general adult medical examination with abnormal findings
CPT/HCPCS: 36415; 80053; 80061; 81001; 82306; 83036; 84439; 84443; 85025

== ENCOUNTER 2025-02-27 09:52 | Day surgery (SDC) | payer OTHER ==
[2025-02-23 14:23] LABS: Hematocrit 35.9 % (36.0-46.0); Hemoglobin 12.1 g/dL (12.2-16.2); Mean Corpuscular Hemoglobin 29.3 pg (28.0-32.0); Mean Corpuscular Volume 86.9 fL (80.0-100.0); Nucleated Red Blood Cells % 0.1 %
[2025-02-23 14:36] LABS: INR 0.91 (0.9-1.15); Partial Thromboplastin Time 25.6 SEC (24.5-34.5); Prothrombin Time 9.7 sec (9.3-11.8)
[2025-02-23 15:03] LABS: Urine Protein, UAD Negative (Negative)
[2025-02-23 16:22] LABS: Alanine Aminotransferase 23 U/L (7-40); Albumin 4.2 g/dL (3.2-4.8); Alkaline Phosphatase 78 U/L (46-116); Anion Gap 10 (5-15); BUN/Creatinine Ratio 17.3 (10.0-20.0); Blood Urea Nitrogen 14 mg/dL (9-23); Calcium 9.3 mg/dL (8.7-10.4); Carbon Dioxide 28 mmol/L (20-31); Chloride 102 mmol/L (98-107); Glucose 99 mg/dL (74-106); Potassium 3.8 mmol/L (3.5-5.1); Sodium 140 mmol/L (136-145); Total Protein 6.8 g/dL (5.7-8.2)
[2025-02-23 16:27] LABS: Bilirubin, Total 0.2 mg/dL (0.2-1.0)
[~2025-02-27] VITALS: Ht 157.5 cm; Wt 68.0 kg
[~2025-02-27 09:52] MED LIST changes: -CHOL500033 PO; -FAMO20TA10 PO; +METO25TA93 PO; -MULT-1018 OR; -ROSU40TA81 PO; +SERT25TA28 PO; -SULF500T57 PO
[2025-02-27] MEDS ORDERED: MIDAZOLAM HCL 2MG/2ML 2ml VIAL (1mg/ml) ONE (11:12)
[2025-02-27] MEDS ORDERED: HYDROCORTISONE SOD SUCC 100 MG/2ML INJ VIAL ONE (11:12)
[2025-02-27] MEDS ORDERED: PROPOFOL 10 MG/ML 20 ML IV ONE (11:12)
[2025-02-27] MEDS ORDERED: ONDANSETRON HCL 4 MG/2 ML VIAL ONE (11:44)
[2025-02-27] MEDS ORDERED: fentaNYL CITRATE 100 MCG/2 ML VL ONE (12:07)
[2025-02-27 12:26] VITALS: PULSE 68; RESP 14; TEMP 97.6; O2SAT 99
--- NOTE | 2025-02-27 12:31 | DVHOP2 ---
Operative Report DATE OF OPERATION: 02/27/25 PROCEDURE: Colonoscopy with cold biopsy. PREOPERATIVE INDICATION: The patient is a 74 -year-old female undergoing colonoscopy for surveillance with personal history of colon polyps and history of Crohn's disease POSTOPERATIVE DIAGNOSES: 1. Minimal ileitis involving the distal 5 to 10 cm of the terminal ileum from which biopsies were obtained 2. There was a 2 mm benign-appearing rectal polyp that was seen and removed by cold biopsy forceps 3. Sigmoid diverticular disease and trace internal hemorrhoids otherwise normal examination up to the cecum and terminal ileum PROCEDURE PERFORMED BY: Tony Kebede M.D. SCOPE: Olympus videocolonoscope. ASA CLASS: 2 PREOPERATIVE MEDICATIONS: Mac sedation, Dr. Rendon PROCEDURE IN DETAIL: After obtaining an informed consent, the patient was placed on left lateral decubitus position. She was then sedated with the above medications. A rectal examination was performed that was normal. The colonoscope was then passed through the anus into the rectosigmoid and through the descending, transverse, and ascending colon up to the cecum with visualization of the appendiceal orifice, base of the cecum and the ileocecal valve. The colonoscope was then withdrawn. There was mild ileitis with some hyperemia erythema involving the distal 5-10 cm of the terminal ileum Terminal ileum biopsies were obtained. There was no masses and evidence of co litis. Some random left colon biopsies were obtained There was mild sigmoid diverticular disease. In the rectum there was a 1-2 mm benign-appearing polyp that was seen and removed by cold biopsy forceps On retroflexion she had trace internal hemorrhoids. The patient tolerated the procedure well without difficulty. WITHDRAWAL TIME: 7 minutes QUALITY OF THE PREP: Spicer Bowel Prep score: 9. COMPLICATIONS : None SPECIMENS: Terminal ileum biopsies Random left colon biopsies Rectal polyp DISPOSITION: Stable Discharge to home PLAN: 1. Repeat colonoscopy base on biopsy result likely in five years 2. Resume GI soft diet advance as tolerated 3. Trial of Pentasa and Entocort 4. Outpatient follow up with me in 2-4 weeks to review results and discuss further management TONY KEBEDE MD Feb 27, 2025 12:31
[2025-02-27 12:45] VITALS: PULSE 73; RESP 11; O2SAT 95
[2025-02-27 13:10] VITALS: BP 101/54; PULSE 77; RESP 13; O2SAT 95
== END 2025-02-27 13:27 | disposition home or self-care (01) ==
LOC: GI 09:52
PROVIDERS: ATTEND Internal Medicine Gastroenterology
DX: Z09 Encounter for follow-up examination after completed treatment for conditions other than malignant neoplasm (principal); K62.1 Rectal polyp; K57.30 Diverticulosis of large intestine without perforation or abscess without bleeding; K64.8 Other hemorrhoids; K52.89 Other specified noninfective gastroenteritis and colitis; K21.9 Gastro-esophageal reflux disease without esophagitis; I10 Essential (primary) hypertension; F32.A Depression, unspecified; J44.9 Chronic obstructive pulmonary disease, unspecified; Z90.710 Acquired absence of both cervix and uterus; Z90.89 Acquired absence of other organs; Z96.641 Presence of right artificial hip joint; Z88.0 Allergy status to penicillin; Z88.5 Allergy status to narcotic agent; Z88.8 Allergy status to other drugs, medicaments and biological substances; Z87.891 Personal history of nicotine dependence; Z86.0100 Personal history of colon polyps, unspecified; Z79.899 Other long term (current) drug therapy; Z79.01 Long term (current) use of anticoagulants
CPT/HCPCS: 36415; 45380; 80053; 81001; 85025; 85610; 85730; 88305; J1720; J2250; J2405; J2704; J3010; J7030

== ENCOUNTER → 2025-04-10 | Outpatient (CLI) | payer OTHER ==
[~2025-04-10] MED LIST changes: +IOHEXOL 300 MG/ML 100ML BOTTLE IJ ONE
[2025-04-10 15:09] LABS: Alanine Aminotransferase 15 U/L (7-40); Albumin 4.1 g/dL (3.2-4.8); Alkaline Phosphatase 70 U/L (46-116); Anion Gap 8 (5-15); BUN/Creatinine Ratio 14.0 (10.0-20.0); Blood Urea Nitrogen 12 mg/dL (9-23); Calcium 9.3 mg/dL (8.7-10.4); Carbon Dioxide 29 mmol/L (20-31); Chloride 104 mmol/L (98-107); Glucose 95 mg/dL (74-106); Sodium 141 mmol/L (136-145); Total Protein 6.6 g/dL (5.7-8.2)
[2025-04-10 15:10] LABS: Bilirubin, Total 0.2 mg/dL (0.2-1.0); Potassium 3.4 mmol/L (3.5-5.1)
== END | disposition home or self-care (01) ==
LOC: LAB 13:59
PROVIDERS: ATTEND Internal Medicine Gastroenterology
DX: K35.80 Unspecified acute appendicitis (principal)
CPT/HCPCS: 36415; 80053